=== PATIENT | female | born 1990 | race Caucasian/White ===

== ENCOUNTER 2017-12-25 02:20 | Emergency (ER) | payer OTHER ==
[~2017-12-25 02:20] MED LIST: ALBUPOW26 XX; FLINSTONE VITAMINS; FLUTI220I INH; NAPR550 PO; PEAKMIS IN; SENN1TAB11 PO; SERT-132 PO; VENTAER INH
[2017-12-25] MEDS ORDERED: ACETAMINOPHEN/HYDROcodone 325 MG/5 MG TAB PO ONE (02:30)
[2017-12-25] MEDS ORDERED: AMOXICILLIN (TRIHYDRATE) 500 MG CAP PO ONE (02:30)
[2017-12-25] MEDS ORDERED: NORC5TAB PO ×2 (02:31→02:51)
[2017-12-25] MEDS ORDERED: AMOX500C PO ×2 (02:31→02:51)
--- NOTE | 2017-12-25 02:33 | PD ---
HPI Chief Complaint: Oral / Dental Pain or Problem Time Seen by Provider: 02:29 Travel History International Travel<30 days: No Contact w/Intl Traveler<30days: No Traveled to known affect area: No History of Present Illness HPI 27-year-old white female presents emergency department with complaints of dental pain. She states that she has had pain in her left lower mandible now for the last 1-2 weeks. Is gotten more severe today. She has been taking ibuprofen at home without relief. She denies any fever chills. She states the pain radiates up into her left ear. Symptoms are moderate. No alleviating factors. PFSH Past Medical History ADD: Yes Asthma: Yes Autoimmune Disease: No Blood Disorders: No Anxiety: No Depression: No Cardiovascular Problems: No Cystic Fibrosis: No Diminished Hearing: No Gastrointestinal Disorders: No Genitourinary: No Headaches: Yes Musculoskeletal: No Neurologic: Yes Psychiatric: No Reproductive: No Respiratory: Yes Seizures: No Sickle Cell Disease: No Sleep Apnea: No ?: Not LMP: 12/03/17 Past Surgical History Cholecystectomy: Yes Other Surgery: No Social History Alcohol Use: Yes (SOCIALLY ) Tobacco Use: Yes ('2 CIGS PER DAY' ) Substance Use: No Allergies-Medications (Allergen,Severity, Reaction): Coded Allergies: No Known Allergies (Verified , 06/19/11) Reported Meds & Prescriptions Reported Meds & Active Scripts Active Humnoke (Hydrocodone-Acetaminophen) 5 Mg-325 Mg Tab 1 Tab PO Q6H PRN Amoxicillin 500 Mg Cap 500 Mg PO TID Sertraline 50 mg (Sertraline HCl) 50 Mg Tab 50 Mg PO QHS Flovent Hfa (Fluticasone Propionate) 220 Mcg Aero 2 Puff INH BID Peak Flow Meter Mis 1 U IN Q TRIMESTER Ventolin Hfa (Albuterol Sulfate) 18 Gm Aero 2 Puff INH Q6HPRN * SHAKE WELL BEFORE USE * Senna Plus 8.6-50 mg (Senna/Docusate Sodium) 1 Tab Tab 1 Tab PO HS Reported Anaprox Ds (Naproxen Sodium) 550 Mg Tab 550 Mg PO Q8HPRN Senna Plus 8.6-50 mg (Senna/Docusate Sodium) 1 Tab Tab 1 Tab PO BIDPRN Flovent HFA (Fluticasone Propionate) 220 Mcg Aero 2 Puff INH BID [[place] Vitamins] Albuterol Pow 1 XX Review of Systems General / Constitutional: No: Fever Eyes: No: Visual changes HENT: Positive: Dental Difficulties, Earache, No: Headaches, Sore Throat, Neck Pain Cardiovascular: No: Chest Pain or Discomfort Respiratory: No: Shortness of Breath Gastrointestinal: No: Abdominal Pain Genitourinary: No: Dysuria Musculoskeletal: No: Pain Skin: No Rash Neurologic: No: Weakness Psychiatric: No: Depression Endocrine: No: Polydipsia Hematologic/Lymphatic: No: Easy Bruising Physical Exam Narrative GENERAL: Well-developed, well-nourished in no acute distress. Nontoxic appearing. HEAD: Normocephalic, atraumatic. EYES: Pupils equal round and reactive. Extraocular motions intact. No scleral icterus. No injection or drainage. ENT: TMs clear without erythema. The external auditory canals clear. Nose: clear . Posterior pharynx is pink and moist. No tonsillar edema or exudate. Uvula midline. Airway patent. Patient has a large dental carry in tooth #18. No significant gingival edema or erythema. NECK: Trachea midline.Supple, nontender, moves head freely. No central bony tenderness or spasm. CARDIOVASCULAR: Regular rate and rhythm without murmurs, gallops, or rubs. RESPIRATORY: Clear to auscultation. Breath sounds equal bilaterally. No wheezes , rales, or rhonchi. GASTROINTESTINAL: Abdomen soft, non-tender, nondistended. No hepato-splenomegaly , or palpable masses. No guarding. EXTREMITIES: No clubbing, cyanosis, or edema. No joint tenderness, effusion, or edema noted. BACK: Nontender without deformity or crepitance. No flank tenderness. Data Data Orders Orders Amoxicillin (Trimox) (12/25/17 02:30) Acetamin-Hydrocod 325-5 Mg ([place] 5-325 (12/25/17 02:30) Ed Discharge Order (12/25/17 02:31) MDM Medical Decision Making Medical Screen Exam Complete: Yes Emergency Medical Condition: Yes Medical Record Reviewed: Yes Differential Diagnosis MDM: Moderate Differential diagnoses: Dental abscess, dental caries, osteitis, cellulitis Narrative Course Patient is given Hum[place] 5 mg and amoxicillin 1 g p.o. This is dental caries, dentalgia Diagnosis Primary Impression: Dentalgia Additional Impression: Dental caries Patient Instructions: Narcotic given in the ED Additional Instructions: Rest. Saltwater gargles. [place] oil on cotton balls. 3 Advil every 6 hours. Amoxicillin and Hum[place]ke. follow-up with a dentist as soon as possible. And return to the ER if any problems. Med/Other Pt SpecificInfo: Prescription(s) given Scripts Hydrocodone-Acetaminophen (Hum[place]ke) 5 Mg-325 Mg Tab 1 TAB PO Q6H Y for PAIN, #10 TAB 0 Refills Prov: Malick Bowling MD 12/25/17 Amoxicillin (Amoxicillin) 500 Mg Cap 500 MG PO TID for Infection, #30 CAP 0 Refills Prov: Malick Bowling MD 12/25/17 Disposition: 01 DISCHARGE HOME Condition: Stable Christopher Narayanan Dec 25, 2017 02:33
== END 2017-12-25 02:57 | disposition home or self-care (01) ==
LOC: NEPD 02:20
DX: K02.9 Dental caries, unspecified (principal); F17.210 Nicotine dependence, cigarettes, uncomplicated; J45.909 Unspecified asthma, uncomplicated
CPT/HCPCS: 99283